=== PATIENT | female | born 1970 | race Caucasian/White ===

== ENCOUNTER 2017-01-20 04:16 | Emergency (ER) | payer SELFPAY ==
--- NOTE | 2017-01-20 04:32 | ED.PDOC ---
History of Present Illness - General Chief Complaint: Back Pain or Injury Stated Complaint: back pain Time Seen by Provider: 01/20/17 04:31 Source: patient, RN notes reviewed, Vital Signs reviewed Additional Information: Patient presents to ED complaining of low back pain. She is ambulatory. - History of Present Illness Timing/Duration: 24 hours Quality/Severity: burning, dullness, radiation - down right leg Back Pain Location: lumbar spine Back Pain Radiation: other - right leg Method of Injury/Prior Injury: unknown Improving Factors: immobilization Worsening Factors: movement Associated Symptoms: other - denies sensory/motor loss Allergies/Adverse Reactions: Allergies NO KNOWN ALLERGY Allergy (Verified 01/20/17 04:27) Home Medications: Ambulatory Orders Ibuprofen 600 mg PO TID #30 tab 01/20/17 Review of Systems - Review of Systems Constitutional: States: no symptoms reported EENTM: States: no symptoms reported Respiratory: States: no symptoms reported Cardiology: States: no symptoms reported Gastrointestinal/Abdominal: States: no symptoms reported Genitourinary: States: no symptoms reported Musculoskeletal: States: see HPI, back pain Skin: States: no symptoms reported Endocrine: States: no symptoms reported Hematologic/Lymphatic: States: no symptoms reported Past Medical History (General) - Patient Medical History Hx Seizures: No Hx Stroke: No Hx Dementia: No Hx Asthma: Yes Hx of COPD: No Hx Cardiac Disorders: No Hx Congestive Heart Failure: No Hx Pacemaker: No Hx Hypertension: No Hx Thyroid Disease: No Hx Diabetes: No Hx Gastroesophageal Reflux: No Hx Renal Disease: No Hx Cancer: No Hx of HIV: No Hx Hepatitis C: No Hx MRSA: No Surgical History: cholecystectomy, Hysterectomy - Vaccination History Hx Tetanus, Diphtheria Vaccination: Yes Hx Influenza Vaccination: No Immunizations Up to Date: Yes - Social History Hx Tobacco Use: Yes Hx Chewing Tobacco Use: No Hx Alcohol Use: No Feels Threatened In Home Enviroment: No Feels Threatened In a Relationship: No Hx Physical Abuse: No Hx Emotional Abuse: No Hx Suspected Abuse: No Family Medical History - Family History Mother Hx Cardiac Disease: Yes Physical Exam - Physical Exam General Appearance: No apparent distress - mixed inconsistently with periods or restlessness, Restless - mixed inconsistently with periods or no apparent distress, Unkempt Eyes, Ears, Nose, Throat Exam: PERRL/EOMI Neck Exam: full range of motion Cardiovascular/Respiratory: regular rate, rhythm, normal peripheral pulses, no respiratory distress Back Exam: normal inspection, other - myofascial tenderness to light palpation diffusely over lower back Extremity Exam: no evidence of injury, normal range of motion, other - fully able to ambulate 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 Given presence of abundant Kristine signs, along with her normal vital signs and histrionic behavior I suspect her back pain treatment is less likely to produce satisfactory pain relief despite standard therapy. There is no evidence suggestive of cauda equina syndrome at this time. Patient treated with Toradol 60 mg IM x 1 and recommended she take ibuprofen tid as needed for pain. Patient given return precautions as well. Departure - Departure Clinical Impression: Histrionic behavior Low back pain Qualifiers: Chronicity: acute Back pain laterality: bilateral Sciatica presence: unspecified whether sciatica present Qualified Code(s): M54.5 - Low back pain Time of Disposition: 04:50 Disposition: Discharge to Home or Self Care Condition: Good Departure Forms: ED Discharge - Pt. Copy, Patient Portal Self Enrollment Instructions: DI for Low Back Pain Prescriptions: Ibuprofen 600 mg PO TID #30 tab Home Medications: Ambulatory Orders Ibuprofen 600 mg PO TID #30 tab 01/20/17
[2017-01-20] MEDS ORDERED: KETOROLAC TROMETHAMINE INJ 60 MG/2 ML VIAL IM ONE (04:33)
[2017-01-20 04:53] VITALS: BP 117/75; TEMP 97.9; O2SAT 98
== END 2017-01-20 04:51 | disposition home or self-care (01) ==
LOC: ER 04:16
DX: M54.5 Low back pain (principal); F60.4 Histrionic personality disorder; Z87.891 Personal history of nicotine dependence

== ENCOUNTER 2019-01-31 21:22 | Emergency (ER) | payer SELFPAY ==
[2019-01-31] MEDS ORDERED: IPRATROPIUM/ALBUTEROL 3 ML VIAL NEB ONE (21:47)
[2019-01-31 21:50] VITALS: O2SAT 99
[2019-01-31] MEDS ORDERED: levoFLOXacin 500 MG TAB PO ONE (22:24)
[2019-01-31] MEDS ORDERED: predniSONE 20 MG TAB PO ONE (22:24)
--- NOTE | 2019-01-31 22:25 | RAD ---
EXAM DESCRIPTION: 2 views of the chest CLINICAL HISTORY: shortness of breath COMPARISON: None. FINDINGS: Frontal and lateral views of the chest. Atherosclerotic calcification of the thoracic aorta. Heart is not enlarged. No consolidation, pneumothorax, or pleural effusion. No acute osseous abnormality. Prior cholecystectomy. IMPRESSION: 1. No acute pulmonary process identified. Electronically signed by: Shashank Figueroa 01/31/2019 10:23 PM CDT
[2019-01-31 22:27] VITALS: BP 101/71
--- NOTE | 2019-01-31 22:29 | ED.PDOC ---
History of Present Illness - General Chief Complaint: Respiratory Problem Stated Complaint: cough and congestion, chest tightness Time Seen by Provider: 01/31/19 21:27 Source: patient Exam Limitations: no limitations - History of Present Illness Initial Comments: the patient is a 48-year-old female presenting to emergency room secondary to having a productive cough and some mild shortness of breath last week. No definite fevers. Mild runny nose. She has smoked for many years. No syncope. No chest pain. Timing/Duration: 1 week Severity: moderate Improving Factors: nothing Worsening Factors: nothing Associated Symptoms: cough, shortness of breath Allergies/Adverse Reactions: Allergies NO KNOWN ALLERGY Allergy (Verified 01/20/17 04:27) Home Medications: Ambulatory Orders Ibuprofen 600 mg PO TID #30 tab 01/20/17 levoFLOXacin [Levaquin] 500 mg PO DAILY #5 tab 01/31/19 predniSONE [Prednisone] 20 mg PO DAILY #5 tab 01/31/19 Review of Systems - Review of Systems Constitutional: States: malaise EENTM: States: no symptoms reported Respiratory: States: cough, short of breath Cardiology: States: no symptoms reported Gastrointestinal/Abdominal: States: no symptoms reported Genitourinary: States: no symptoms reported Musculoskeletal: States: no symptoms reported Skin: States: no symptoms reported Neurological: States: no symptoms reported Endocrine: States: no symptoms reported All other Systems: No Change from Baseline Past Medical History (General) - Patient Medical History Hx Seizures: No Hx Stroke: No Hx Dementia: No Hx Asthma: Yes Hx of COPD: Yes Hx Cardiac Disorders: No Hx Congestive Heart Failure: No Hx Pacemaker: No Hx Hypertension: No Hx Thyroid Disease: No Hx Diabetes: No Hx Gastroesophageal Reflux: No Hx Renal Disease: No Hx Cancer: No Hx of HIV: No Hx Hepatitis C: No Hx MRSA: No Surgical History: cholecystectomy, Hysterectomy, other - Vaccination History Hx Tetanus, Diphtheria Vaccination: Yes Hx Influenza Vaccination: No - Social History Hx Tobacco Use: Yes Hx Chewing Tobacco Use: No Hx Alcohol Use: No Hx Physical Abuse: No Hx Emotional Abuse: No Hx Suspected Abuse: No Family Medical History - Family History Mother Family History: Unknown Hx Cardiac Disease: Yes Physical Exam - Physical Exam General Appearance: Alert, Comfortable, No apparent distress Eye Exam: bilateral normal Ears, Nose, Throat: hearing grossly normal, normal ENT inspection, normal pharynx Neck: full range of motion, supple Respiratory: no respiratory distress, no accessory muscle use, rhonchi, wheezing Cardiovascular/Chest: normal peripheral pulses, regular rate, rhythm, no edema Peripheral Pulses: radial,right: 2+, radial,left: 2+ Gastrointestinal/Abdominal: non tender, soft Rectal Exam: deferred Back Exam: no CVA tenderness, no vertebral tenderness Extremity: normal range of motion, non-tender, normal inspection, no pedal edema, normal capillary refill 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 She appears to be having a COPD exacerbation. She did do a little better after breathing treatments. Chest x-ray shows no definitive pneumonia. The patient will be treated with Lev aquin and prednisone for the next 5 days. She can continue to use her albuterol inhaler as needed. Follow-up with primary care doctor later this week. She is not oxygen dependent. ER warnings were given. 01/31/19 22:30 naif aaron [id number] - Results/Orders Results/Orders: chest x-ray shows no acute pathology. Departure - Departure Clinical Impression: Acute exacerbation of COPD with asthma Disposition: Discharge to Home or Self Care Condition: Fair Departure Forms: ED Discharge - Pt. Copy, Patient Portal Self Enrollment Instructions: DI for Asthma -- Adult, Exacerbation of COPD Diet: regular diet Activity: increase activity as tolerated Prescriptions: levoFLOXacin [Levaquin] 500 mg PO DAILY #5 tab predniSONE [Prednisone] 20 mg PO DAILY #5 tab Home Medications: Ambulatory Orders Ibuprofen 600 mg PO TID #30 tab 01/20/17 levoFLOXacin [Levaquin] 500 mg PO DAILY #5 tab 01/31/19 predniSONE [Prednisone] 20 mg PO DAILY #5 tab 01/31/19 Additional Instructions: the patient is a 48-year-old female presenting to the emergency room with some shortness of breath and productive cough. She appears to be having a COPD exacerbation. She did do a little better after breathing treatments. Chest x-ray shows no definitive pneumonia. The patient will be treated with Levaquin and prednisone for the next 5 days. She can continue to use her albuterol inhaler as needed. Follow-up with primary care doctor later this week. She is not oxygen dependent. ER warnings were given.Stop smoking.
[2019-01-31 22:39] VITALS: TEMP 97.1
== END 2019-01-31 22:39 | disposition home or self-care (01) ==
LOC: ER 21:22
DX: J44.1 Chronic obstructive pulmonary disease with (acute) exacerbation (principal); Z87.891 Personal history of nicotine dependence
CPT/HCPCS: 71046; 93005; 94640; J7512; J7620